=== PATIENT | female | born 1950 | race Caucasian/White ===

== ENCOUNTER → 2018-11-14 | Outpatient (CLI) | payer MEDICARE, BC | END | disposition home or self-care (01) | LOC: CVU 08:12 | PROVIDERS: ATTEND Internal Medicine Cardiovascular Disease | DX: Z01.810 Encounter for preprocedural cardiovascular examination (principal) | CPT/HCPCS: 0399T; 93017; 93306 ==

== ENCOUNTER 2019-11-14 05:26 | Inpatient (IN) | payer MEDICARE, BC ==
[2019-11-11 11:02] LABS: MICROSCOPIC INDICATED
[2019-11-11 11:04] LABS: BASOPHILS # (AUTO) 0.05 x10^3/uL (0-0.1); BASOPHILS % (AUTO) 1 % (0-1); EOSINOPHILS # (AUTO) 0.16 x10^3/uL (0-0.4); EOSINOPHILS % (AUTO) 2 % (1-7); LYMPHOCYTES # (AUTO) 1.46 x10^3/uL (1-3.4); LYMPHOCYTES % (AUTO) 22 % (22-44); MD NO; MEAN CORPUSCULAR HEMOGLOBIN 31.3 pg (27.0-34.8); MEAN CORPUSCULAR HGB CONC 33.4 g/dL (32.4-35.8); MEAN CORPUSCULAR VOLUME 93.6 fL (80-100); MONOCYTES # (AUTO) 0.67 x10^3/uL (0.2-0.8); MONOCYTES % (AUTO) 10 % (2-9); NEUTROPHILS # (AUTO) 4.38 x10^3/uL (1.8-6.8); NEUTROPHILS % (AUTO) 65 % (42-75); PLATELET COUNT 251 x10^3/uL (130-400); RED BLOOD COUNT 4.54 x10^6/uL (3.82-5.3); RED CELL DISTRIBUTION WIDTH 13.1 % (9.6-15.2)
[2019-11-11 11:05] LABS: ANION GAP 8 mmol/L (5-15); CALCIUM 8.4 mg/dL (8.5-10.1); CHLORIDE 107 mmol/L (98-107); CREATININE 0.81 mg/dL (0.55-1.02)
[2019-11-11 11:08] LABS: INTERNATIONAL NORMALIZED RATIO 1.02 (0.93-1.1); PROTHROMBIN TIME 10.7 Seconds (9.6-11.5)
[~2019-11-14] VITALS: Ht 170.2 cm; Wt 69.5 kg
[~2019-11-14 05:26] MED LIST: ACET-76 PO; ACYC-114 PO; AMIT10TA PO; ATOR20TA37 PO; BUPR150T73 PO; CALC625T23 PO; DICL75TA3 PO; DIPH25CA61 PO; FLUT15.845 NAS; HYDR-3245 PO; METH750T2 PO; MULT1TAB60 PO; OMEG-172 PO; OMEP-110 PO; PREG75CA PO; PROM12.57 PO; RISE150T3 PO; citrical PO
[2019-11-14] MEDS ORDERED: BUPIVACAINE/PF 0.5% ONE (06:08)
[2019-11-14] MEDS ORDERED: VANCOMYCIN 1,000 MG ONE (06:09)
[2019-11-14] MEDS ORDERED: BACITRACIN 50,000 UNIT ONE (06:09)
[2019-11-14] MEDS ORDERED: EPINEPHRINE 1 MG/ML, 1ML ONE (06:09)
[2019-11-14] MEDS ORDERED: LACTATED RINGERS 1,000 ML IV SCH (06:19)
[2019-11-14 06:22] VITALS: BP 122/76
[2019-11-14] MEDS ORDERED: FENTANYL PF 250 MCG/5ML ONE (06:40)
[2019-11-14] MEDS ORDERED: MIDAZOLAM 1 MG/ML, 2ML ONE (06:40)
[2019-11-14 06:56] LABS: MICROSCOPIC NOT IND
[2019-11-14] MEDS ORDERED: SCOPOLAMINE PATCH, 1.5MG PATCH.TD72 TD ONE (07:00)
[2019-11-14] MEDS ORDERED: ACETAMINOPHEN 500 MG TABLET PO ONE (07:00)
[2019-11-14] MEDS ORDERED: PROPOFOL 10 MG/ML, 20ML ONE (07:08)
[2019-11-14] MEDS ORDERED: ROCURONIUM 10MG/ML,5ML ONE (07:08)
[2019-11-14] MEDS ORDERED: CEFAZOLIN 1,000 MG ONE (07:08)
[2019-11-14] MEDS ORDERED: ONDANSETRON 2MG/ML, 2ML ONE (07:08)
[2019-11-14] MEDS ORDERED: DEXAMETHASONE 4 MG/ML, 1ML ONE (07:08)
[2019-11-14] MEDS ORDERED: SUCCINYLCHOLINE 20 MG/ML, 10ML ONE (07:08)
[2019-11-14] MEDS ORDERED: HYDROcodone/APAP 7.5-325MG/15ML UDC ONE (09:16)
[2019-11-14] MEDS ORDERED: FENTANYL PF 100 MCG/2ML ONE (09:16)
[2019-11-14] MEDS: FENTANYL PF 100 MCG/2ML IV PRN ×3 (09:17→09:28)
[2019-11-14] MEDS ORDERED: HYDROcodone/APAP 7.5-325MG/15ML UDC PO PRN (09:30)
[2019-11-14] MEDS ORDERED: MEPERIDINE/PF 25MG/0.5ML IVPush PRN (09:30)
[2019-11-14] MEDS ORDERED: OXYcodone 5 MG/5 ML ORAL.SOL UDC PO PRN (09:30)
[2019-11-14] MEDS ORDERED: ALBUTEROL SULFATE 2.5 MG/3 ML NPPB PRN (09:30)
[2019-11-14] MEDS ORDERED: HYDROmorphone 1 MG/ML, 1ML INJ ONE ×3 (09:30→10:28)
[2019-11-14] MEDS ORDERED: METHOCARBAMOL 1,000 MG in DEXTROSE 5% 100 ML IV ONE (09:30)
[2019-11-14] MEDS ORDERED: LABETALOL 5MG/ML, 20ML IV PRN ×2 (09:30→13:00)
[2019-11-14] MEDS ORDERED: METOCLOPRAMIDE 5 MG/ML, 2ML IV PRN (09:30)
[2019-11-14] MEDS ORDERED: hydrALAzine 20 MG/ML, 1ML IV PRN (09:30)
[2019-11-14] MEDS ORDERED: PROMETHAZINE 25 MG/ML, 1ML IV PRN (09:30)
[2019-11-14] MEDS ORDERED: KETOROLAC 30 MG/1 ML IV PRN (09:30)
[2019-11-14] MEDS ORDERED: ONDANSETRON 2MG/ML, 2ML IVPush PRN (09:30)
[2019-11-14] MEDS: HYDROmorphone 1 MG/ML, 1ML INJ IV PRN ×5 (09:40→10:30)
[2019-11-14] MEDS ORDERED: HALOPERIDOL 5 MG/ML ONE (10:01)
[2019-11-14] MEDS ORDERED: BISACODYL 10 MG SUPP PR PRN (13:00)
[2019-11-14] MEDS ORDERED: DIPHENHYDRAMINE 50 MG/ML, 1ML IVPush PRN (13:00)
[2019-11-14] MEDS ORDERED: HYDROcodone/APAP 5/325 TABLET PO PRN (13:00)
[2019-11-14] MEDS ORDERED: DIPHENHYDRAMINE 50 MG/ML, 1ML IM PRN (13:00)
[2019-11-14] MEDS ORDERED: PROMETHAZINE 25 MG/ML, 1ML IM PRN (13:00)
[2019-11-14] MEDS ORDERED: HYDROmorphone 2 MG/ML, 1ML IVPush PRN (13:00)
[2019-11-14] MEDS ORDERED: DIPHENHYDRAMINE 25 MG CAPSULE PO PRN (13:00)
[2019-11-14] MEDS ORDERED: FLUTICASONE NASAL SPRAY 16GM NAS PRN (13:00)
[2019-11-14] MEDS ORDERED: ACETAMINOPHEN 500 MG TABLET PO PRN (13:30)
[2019-11-14] MEDS: D5%-0.9% NACL+KCL 20MEQ 1,000 ML IV SCH ×2 (13:43→23:49)
[2019-11-14 13:44] VITALS: BP 116/63
[2019-11-14] MEDS: HYDROcodone/APAP 10/325 MG TABLET PO PRN ×4 (13:53→23:52)
[2019-11-14] MEDS: CLINDAMYCIN PMX 600MG/50ML 50 ML IV SCH ×2 (15:31→23:46)
[2019-11-14 18:48] VITALS: BP 115/73
[2019-11-14] MEDS: METHOCARBAMOL 750 MG TABLET PO PRN (19:45)
[2019-11-14] MEDS: AMITRIPTYLINE 10 MG TABLET PO SCH (20:52)
[2019-11-14] MEDS: BUPROPION SR 150 MG TABLET PO SCH (20:52)
[2019-11-14] MEDS: ATORVASTATIN 20 MG TABLET PO SCH (20:53)
[2019-11-14] MEDS: GABAPENTIN 300 MG CAPSULE PO SCH (20:53)
[2019-11-14] MEDS: ACYCLOVIR 400 MG TABLET PO SCH (20:53)
[2019-11-15 00:26] VITALS: BP 106/62
[2019-11-15] MEDS: MAGNESIUM HYDROXIDE 8%, 30ML UDC PO PRN (03:17)
[2019-11-15] MEDS: METHOCARBAMOL 750 MG TABLET PO PRN ×2 (03:47→14:52)
[2019-11-15] MEDS: HYDROcodone/APAP 10/325 MG TABLET PO PRN ×3 (03:47→21:29)
[2019-11-15 05:03] VITALS: BP 115/72
[2019-11-15] MEDS: ONDANSETRON 2MG/ML, 2ML IV PRN (05:15)
[2019-11-15] MEDS: OMEPRAZOLE 20 MG CAPSULE.DR PO SCH (05:33)
[2019-11-15] MEDS ORDERED: BUPIVACAINE/PF 0.25% ONE (06:20)
[2019-11-15] MEDS ORDERED: BUPIVACAINE/PF 0.5% ONE (06:20)
[2019-11-15] MEDS ORDERED: EPINEPHRINE 1 MG/ML, 1ML ONE (06:21)
[2019-11-15] MEDS ORDERED: THROMBIN 5,000 UNIT VIAL TP ONE (06:21)
[2019-11-15] MEDS ORDERED: VANCOMYCIN 1,000 MG ONE (06:21)
[2019-11-15] MEDS ORDERED: BACITRACIN 50,000 UNIT ONE (06:21)
[2019-11-15 06:25] LABS: CHLORIDE 110 mmol/L (98-107)
[2019-11-15 06:29] LABS: ANION GAP 5 mmol/L (5-15); CREATININE 0.78 mg/dL (0.55-1.02)
[2019-11-15 06:43] LABS: BASOPHILS # (AUTO) 0.03 x10^3/uL (0-0.1); BASOPHILS % (AUTO) 0 % (0-1); EOSINOPHILS # (AUTO) 0.02 x10^3/uL (0-0.4); EOSINOPHILS % (AUTO) 0 % (1-7); LYMPHOCYTES # (AUTO) 1.36 x10^3/uL (1-3.4); LYMPHOCYTES % (AUTO) 13 % (22-44); MD NO; MEAN CORPUSCULAR HEMOGLOBIN 31.4 pg (27.0-34.8); MEAN CORPUSCULAR HGB CONC 33.3 g/dL (32.4-35.8); MEAN CORPUSCULAR VOLUME 94.4 fL (80-100); MONOCYTES % (AUTO) 10 % (2-9); NEUTROPHILS # (AUTO) 8.03 x10^3/uL (1.8-6.8); NEUTROPHILS % (AUTO) 77 % (42-75); PLATELET COUNT 207 x10^3/uL (130-400); RED BLOOD COUNT 4.03 x10^6/uL (3.82-5.3); RED CELL DISTRIBUTION WIDTH 13.2 % (9.6-15.2)
[2019-11-15] MEDS ORDERED: PROPOFOL 100 ML ONE (07:47)
[2019-11-15] MEDS ORDERED: NEOSTIGMINE 1 MG/ML, 10ML ONE (07:47)
[2019-11-15] MEDS ORDERED: ROCURONIUM 10MG/ML,5ML ONE (07:47)
[2019-11-15] MEDS ORDERED: PROPOFOL 10 MG/ML, 20ML ONE (07:47)
[2019-11-15] MEDS ORDERED: CEFAZOLIN 1,000 MG ONE (07:47)
[2019-11-15] MEDS ORDERED: ONDANSETRON 2MG/ML, 2ML ONE (07:47)
[2019-11-15] MEDS ORDERED: GLYCOPYRROLATE 0.2MG/1ML, 5ML ONE (07:47)
[2019-11-15] MEDS ORDERED: DEXAMETHASONE 4 MG/ML, 1ML ONE (07:47)
[2019-11-15] MEDS ORDERED: FENTANYL PF 250 MCG/5ML ONE (07:49)
[2019-11-15 08:10] VITALS: BP 91/51
[2019-11-15] MEDS: SENNA/DOCUSATE TABLET PO SCH (08:28)
[2019-11-15] MEDS: BUPROPION SR 150 MG TABLET PO SCH ×2 (08:28→20:28)
[2019-11-15] MEDS: SULFAMETH./TRIMETHOPRIM DS 800MG/160MG TABLET PO SCH ×2 (08:28→20:29)
[2019-11-15] MEDS: POLYETHYLENE GLYCOL 17 GM PACKET PO SCH (08:28)
[2019-11-15] MEDS ORDERED: GABAPENTIN 300 MG CAPSULE PO ONE (09:00)
[2019-11-15] MEDS ORDERED: ACETAMINOPHEN 500 MG TABLET PO ONE (09:00)
[2019-11-15] MEDS ORDERED: PHENYLEPHRINE 10 MG/ML ONE (09:25)
[2019-11-15] MEDS ORDERED: LABETALOL 5MG/ML, 20ML IV PRN (09:30)
[2019-11-15] MEDS ORDERED: HYDROmorphone 2 MG/ML, 1ML IVPush PRN (09:30)
[2019-11-15] MEDS ORDERED: MEPERIDINE/PF 25MG/ML,1ML IVPush PRN (09:30)
[2019-11-15] MEDS ORDERED: hydrALAzine 20 MG/ML, 1ML IV PRN (09:30)
[2019-11-15] MEDS ORDERED: HALOPERIDOL 5 MG/ML IV PRN (09:30)
[2019-11-15] MEDS ORDERED: PROMETHAZINE 25 MG/ML, 1ML IV PRN (09:30)
[2019-11-15] MEDS ORDERED: FENTANYL PF 100 MCG/2ML IV PRN (09:30)
[2019-11-15] MEDS ORDERED: BUPIVACAINE LIPOSOME/PF 10ML INFIL ONE (09:45)
[2019-11-15] MEDS ORDERED: FENTANYL PF 100 MCG/2ML ONE (10:41)
[2019-11-15] MEDS ORDERED: BUPIVACAINE/PF 0.25% EPIDPUSH ONE (10:44)
[2019-11-15] MEDS ORDERED: FENTANYL PF 100 MCG/2ML EPIDPUSH ONE (10:45)
[2019-11-15] MEDS ORDERED: HYDROcodone/APAP 5/325 TABLET PO PRN (11:00)
[2019-11-15] MEDS: D5%-0.9% NACL+KCL 20MEQ 1,000 ML IV SCH ×3 (11:00→20:00)
[2019-11-15] MEDS ORDERED: HYDROcodone/APAP 10/325 MG TABLET PO PRN (11:00)
[2019-11-15] MEDS ORDERED: METHOCARBAMOL 750 MG TABLET PO PRN (11:00)
[2019-11-15] MEDS ORDERED: CYCLOBENZAPRINE 10 MG TABLET PO PRN (11:00)
[2019-11-15] MEDS ORDERED: PHARMACY MAY ADJ FOR RENAL FX MC PRN (11:00)
[2019-11-15] MEDS ORDERED: BUPIVACAINE 0.25% ONE (11:06)
[2019-11-15 12:31] VITALS: BP 105/55
[2019-11-15 20:15] VITALS: BP 122/72
[2019-11-15] MEDS: ACYCLOVIR 400 MG TABLET PO SCH (20:28)
[2019-11-15] MEDS: AMITRIPTYLINE 10 MG TABLET PO SCH (20:28)
[2019-11-15] MEDS: ATORVASTATIN 20 MG TABLET PO SCH (20:29)
[2019-11-15] MEDS: GABAPENTIN 300 MG CAPSULE PO SCH (20:29)
[2019-11-15] MEDS: SODIUM CHLORIDE FLUSH 10ML SYR IVF SCH (21:00)
[2019-11-16 00:22] VITALS: BP 107/67
[2019-11-16] MEDS: HYDROcodone/APAP 10/325 MG TABLET PO PRN ×5 (01:46→18:42)
[2019-11-16 05:20] LABS: ANION GAP 5 mmol/L (5-15); CALCIUM 7.8 mg/dL (8.5-10.1); CHLORIDE 112 mmol/L (98-107)
[2019-11-16 05:21] LABS: CREATININE 0.63 mg/dL (0.55-1.02)
[2019-11-16 05:27] VITALS: BP 103/59
[2019-11-16 05:48] LABS: BASOPHILS # (AUTO) 0.03 x10^3/uL (0-0.1); BASOPHILS % (AUTO) 0 % (0-1); EOSINOPHILS % (AUTO) 0 % (1-7); LYMPHOCYTES # (AUTO) 1.04 x10^3/uL (1-3.4); LYMPHOCYTES % (AUTO) 10 % (22-44); MD NO; MEAN CORPUSCULAR HEMOGLOBIN 31.1 pg (27.0-34.8); MEAN CORPUSCULAR HGB CONC 33.2 g/dL (32.4-35.8); MEAN CORPUSCULAR VOLUME 93.7 fL (80-100); MEAN PLATELET VOLUME 8.6 fL (7.4-10.4); MONOCYTES % (AUTO) 11 % (2-9); NEUTROPHILS # (AUTO) 8.42 x10^3/uL (1.8-6.8); NEUTROPHILS % (AUTO) 79 % (42-75); PLATELET COUNT 182 x10^3/uL (130-400)
[2019-11-16] MEDS: D5%-0.9% NACL+KCL 20MEQ 1,000 ML IV SCH ×2 (05:55→13:18)
[2019-11-16] MEDS: MAGNESIUM HYDROXIDE 8%, 30ML UDC PO PRN ×2 (05:56→18:31)
[2019-11-16] MEDS: OMEPRAZOLE 20 MG CAPSULE.DR PO SCH (05:56)
[2019-11-16 07:18] VITALS: BP 112/65
[2019-11-16] MEDS: SULFAMETH./TRIMETHOPRIM DS 800MG/160MG TABLET PO SCH ×2 (09:46→20:43)
[2019-11-16] MEDS: POLYETHYLENE GLYCOL 17 GM PACKET PO SCH (09:47)
[2019-11-16] MEDS: BUPROPION SR 150 MG TABLET PO SCH ×2 (09:47→20:43)
[2019-11-16] MEDS: SENNA/DOCUSATE TABLET PO SCH (09:47)
[2019-11-16] MEDS: SODIUM CHLORIDE FLUSH 10ML SYR IVF SCH ×2 (09:48→20:44)
[2019-11-16 12:55] VITALS: BP 109/62
[2019-11-16 19:54] VITALS: BP 108/64
[2019-11-16] MEDS: METHOCARBAMOL 750 MG TABLET PO PRN (20:42)
[2019-11-16] MEDS: ACYCLOVIR 400 MG TABLET PO SCH (20:43)
[2019-11-16] MEDS: GABAPENTIN 300 MG CAPSULE PO SCH (20:43)
[2019-11-16] MEDS: ATORVASTATIN 20 MG TABLET PO SCH (20:43)
[2019-11-16] MEDS: AMITRIPTYLINE 10 MG TABLET PO SCH (20:44)
[2019-11-17] MEDS: HYDROcodone/APAP 10/325 MG TABLET PO PRN ×3 (00:30→18:23)
[2019-11-17 01:29] VITALS: BP 112/59
[2019-11-17] MEDS: D5%-0.9% NACL+KCL 20MEQ 1,000 ML IV SCH (03:00)
[2019-11-17] MEDS: ONDANSETRON 2MG/ML, 2ML IV PRN (04:36)
[2019-11-17 05:28] LABS: BASOPHILS # (AUTO) 0.06 x10^3/uL (0-0.1); BASOPHILS % (AUTO) 1 % (0-1); EOSINOPHILS # (AUTO) 0.06 x10^3/uL (0-0.4); EOSINOPHILS % (AUTO) 1 % (1-7); LYMPHOCYTES # (AUTO) 1.22 x10^3/uL (1-3.4); LYMPHOCYTES % (AUTO) 11 % (22-44); MD NO; MEAN CORPUSCULAR HEMOGLOBIN 31.1 pg (27.0-34.8); MEAN CORPUSCULAR HGB CONC 33.3 g/dL (32.4-35.8); MEAN CORPUSCULAR VOLUME 93.3 fL (80-100); MEAN PLATELET VOLUME 8.5 fL (7.4-10.4); MONOCYTES # (AUTO) 1.16 x10^3/uL (0.2-0.8); MONOCYTES % (AUTO) 11 % (2-9); NEUTROPHILS # (AUTO) 8.46 x10^3/uL (1.8-6.8); NEUTROPHILS % (AUTO) 77 % (42-75); PLATELET COUNT 192 x10^3/uL (130-400); RED BLOOD COUNT 3.75 x10^6/uL (3.82-5.3); RED CELL DISTRIBUTION WIDTH 13.2 % (9.6-15.2)
[2019-11-17] MEDS ORDERED: METOCLOPRAMIDE 5 MG/ML, 2ML IVPush SCH (05:30)
[2019-11-17 05:35] LABS: ANION GAP 6 mmol/L (5-15); CALCIUM 8.2 mg/dL (8.5-10.1); CHLORIDE 106 mmol/L (98-107); CREATININE 0.73 mg/dL (0.55-1.02)
[2019-11-17] MEDS: OMEPRAZOLE 20 MG CAPSULE.DR PO SCH (06:00)
[2019-11-17 07:48] VITALS: BP 133/77
[2019-11-17] MEDS: SENNA/DOCUSATE TABLET PO SCH (09:00)
[2019-11-17] MEDS ORDERED: KETOROLAC 30 MG/1 ML IVPush ONE (12:30)
[2019-11-17] MEDS: SULFAMETH./TRIMETHOPRIM DS 800MG/160MG TABLET PO SCH ×2 (12:34→22:25)
[2019-11-17] MEDS: POLYETHYLENE GLYCOL 17 GM PACKET PO SCH (12:34)
[2019-11-17 14:00] VITALS: BP 120/73
[2019-11-17] MEDS: SODIUM CHLORIDE FLUSH 10ML SYR IVF SCH ×2 (15:26→22:26)
[2019-11-17] MEDS: BUPROPION SR 150 MG TABLET PO SCH ×2 (15:27→22:25)
[2019-11-17 18:49] VITALS: BP 123/68
[2019-11-17] MEDS: GABAPENTIN 300 MG CAPSULE PO SCH (22:25)
[2019-11-17] MEDS: ACYCLOVIR 400 MG TABLET PO SCH (22:25)
[2019-11-17] MEDS: ATORVASTATIN 20 MG TABLET PO SCH (22:25)
[2019-11-17] MEDS: AMITRIPTYLINE 10 MG TABLET PO SCH (22:25)
[2019-11-18 02:11] VITALS: BP 123/63
[2019-11-18] MEDS: OMEPRAZOLE 20 MG CAPSULE.DR PO SCH (06:49)
[2019-11-18 07:18] VITALS: BP 127/77
[2019-11-18] MEDS: POLYETHYLENE GLYCOL 17 GM PACKET PO SCH (08:55)
[2019-11-18] MEDS: SULFAMETH./TRIMETHOPRIM DS 800MG/160MG TABLET PO SCH (08:55)
[2019-11-18] MEDS: HYDROcodone/APAP 10/325 MG TABLET PO PRN (08:55)
[2019-11-18] MEDS: BUPROPION SR 150 MG TABLET PO SCH (08:55)
[2019-11-18] MEDS: SENNA/DOCUSATE TABLET PO SCH (08:56)
[2019-11-18] MEDS: SODIUM CHLORIDE FLUSH 10ML SYR IVF SCH (09:00)
[2019-11-18] MEDS ORDERED: HYDR-3246 PO (10:08)
[2019-11-18] MEDS ORDERED: SULF1TAB24 PO (10:10)
[2019-11-18] MEDS ORDERED: METH750T87 PO (10:10)
[2019-11-18] MEDS ORDERED: POLY17PO5 PO (10:11)
[2019-11-18 11:20] VITALS: BP 117/71
== END 2019-11-18 11:45 | disposition home health service (06) | DRG 454 ==
LOC: ORIP 05:26 → 4NE 11:21 → DCLOUNGE 11-18 11:36
PROVIDERS: ADMIT Neurological Surgery; ATTEND Neurological Surgery
PROC: 0SB20ZZ Excision of Lumbar Vertebral Disc, Open Approach (ICD-10-PCS; 2019-11-14)
PROC: 4A11X4G Monitoring of Peripheral Nervous Electrical Activity, Intraoperative, External Approach (ICD-10-PCS; 2019-11-14)
PROC: 0SG00A0 Fusion of Lumbar Vertebral Joint with Interbody Fusion Device, Anterior Approach, Anterior Column, Open Approach (ICD-10-PCS; principal; 2019-11-14 07:00)
PROC: 0SG1071 Fusion of 2 or more Lumbar Vertebral Joints with Autologous Tissue Substitute, Posterior Approach, Posterior Column, Open Approach (ICD-10-PCS; 2019-11-15)
PROC: 00NY0ZZ Release Lumbar Spinal Cord, Open Approach (ICD-10-PCS; 2019-11-15)
PROC: 01NB0ZZ Release Lumbar Nerve, Open Approach (ICD-10-PCS; 2019-11-15)
PROC: 4A11X4G Monitoring of Peripheral Nervous Electrical Activity, Intraoperative, External Approach (ICD-10-PCS; 2019-11-15)
PROC: 3E0R3BZ Introduction of Anesthetic Agent into Spinal Canal, Percutaneous Approach (ICD-10-PCS; 2019-11-15)
PROC: 00HU33Z Insertion of Infusion Device into Spinal Canal, Percutaneous Approach (ICD-10-PCS; 2019-11-15)
DX: M48.062 Spinal stenosis, lumbar region with neurogenic claudication (principal); N39.0 Urinary tract infection, site not specified; M47.896 Other spondylosis, lumbar region; M41.50 Other secondary scoliosis, site unspecified; M51.16 Intervertebral disc disorders with radiculopathy, lumbar region; Z88.6 Allergy status to analgesic agent; Z88.5 Allergy status to narcotic agent; Z88.0 Allergy status to penicillin; Z88.8 Allergy status to other drugs, medicaments and biological substances
CPT/HCPCS: 36415; 71046; 72100; 72131; 74018; 80048; 81001; 81003; 85025; 85610; 85730; 87077; 87086; 87186; 93005; C1713; G0378; J0171; J0690; J1100; J1170; J1885; J2250; J2405; J2704; J2710; J3010; J3370; J3490; C1760; C1763; C1769; C1889; J0330; J2370; J2765; J2800; J3480; J7120